=== PATIENT | male | born 1975 | race Caucasian/White ===

== ENCOUNTER 2020-02-19 16:32 | Emergency (ER) | payer OTHER, SELFPAY ==
--- NOTE | 2020-02-19 16:39 | ED.MALEGU ---
HPI - Male Genitourinary General Chief complaint: Urogenital-Male Stated complaint: frequent/pressure urination Time Seen by Provider: 02/19/20 16:39 Source: patient and RN notes reviewed History of Present Illness HPI Narrative: Patient is a 44-year-old male that presents the urgent care with complaints of possible UTI. Patient states that for the last month he has had intermittent increase in thirst with decreased urinary output. Patient states that it started at the beginning of the month and seem to have gotten better. Patient states that within the last few days he has had a urgency to go to the bathroom but has had decrease in stream/urinary output. Patient states he does have a slight burn with urination. Denies any lower back pain, nausea, vomiting, abdominal pain, fever. Patient denies any history of urinary tract infections or kidney stones. Patient states he has used Azo a couple times within the last month. Denies any history of diabetes. No other acute complaints. No acute distress noted. Patient read the plan of care. Related Data Home Medications Medication Instructions Recorded Confirmed multivitamin 02/19/20 Allergies Allergy/AdvReac Type Severity Reaction Status Date / Time No Known Allergies Allergy Unverified 01/24/19 06:17 Review of Systems Review of Systems: Narrative: CONSTITUTIONAL: Denies fever, chills, or sweats. EYES: Denies visual changes, redness, or discharge. ENT: Denies rhinorrhea, congestion, sore throat, or otalgia. CARDIOVASCULAR: Denies chest pain, palpitations, or edema. RESPIRATORY: Denies cough or dyspnea. GASTROINTESTINAL: Denies abdominal pain, nausea, vomiting, or diarrhea. GENITOURINARY: Reports of dysuria, urgency, decreased urinary output SKIN: Denies rash or itching. MUSCULOSKELETAL: Denies back pain, joint pain, or myalgia. NEUROLOGIC: Denies headache, numbness, or weakness. All other systems reviewed are negative, except as documented in HPI. PMFSH Social History Social History Alcohol intake: never Comments At the time of my signature, I reviewed and agree with the nursing past medical, surgical, social, and family history. There is no relevant family history pertinent to the patient complaint. Exam Narrative: Exam Narrative: GENERAL: This is a well-nourished, well-developed patient, in no apparent distress. HEAD: normocephalic, atraumatic. EYES: PERRL. Sclera clear/white. Vision is grossly intact. EARS: External ears normal NOSE: External nose normal with no obvious nasal discharge THROAT: Mucous membranes moist NECK: Neck supple CARDIOVASCULAR: Regular rate and rhythm without murmurs, gallops, or rubs. RESPIRATORY: Clear to auscultation. Breath sounds equal bilaterally. No wheezes, rales, or rhonchi. GASTROINTESTINAL: Abdomen soft, non-tender, nondistended. Bowel sounds are active. SKIN: warm, intact with no suspicious lesions or rash, good texture and turgor. NEURO: awake, alert, and oriented to person, place and time. There were no obvious focal neurologic abnormalities. EXTREMITIES: No clubbing, cyanosis, or edema. BACK: Negative bilateral CVA tenderness Course Vital Signs Vital signs: Vital Signs Temperature 98.6 F 02/19/20 16:44 Pulse Rate 98 02/19/20 16:44 Respiratory Rate 16 02/19/20 16:44 Blood Pressure 131/75 02/19/20 16:44 Pulse Oximetry 98 02/19/20 16:44 Temperature 98.6 F 02/19/20 16:44 Pulse Rate 98 02/19/20 16:44 Respiratory Rate 16 02/19/20 16:44 Blood Pressure 131/75 02/19/20 16:44 Pulse Oximetry 98 02/19/20 16:44 Reviewed MDM - Male Genitourinary MDM Narrative Medical decision making narrative: Reviewed lab results with the patient. He is aware that fingerstick was 91, within normal limits. He is aware that urine analysis was indicative of a urinary tract infection. Advised the patient to complete oral antibiotic regimen as prescribed. We will call him with culture results if medicat
[2020-02-19 16:44] VITALS: BP 131/75; PULSE 98; RESP 16; TEMP 37; O2SAT 98
[2020-02-19 17:24] LABS: Glucose Point of Care 91 (65-105)
== END 2020-02-19 17:26 | disposition home or self-care (01) ==
PROVIDERS: Emergency Provider Nurse Practitioner Family
DX: N39.0 Urinary tract infection, site not specified (principal)
CPT/HCPCS: 81003; 82948; 87086; 99213; G0463